=== PATIENT | male | born 1945 | race Caucasian/White ===

== ENCOUNTER → 2017-08-28 | Outpatient (CLI) | payer OTHER, MEDICARE ==
[~2017-08-28] MED LIST: GADOBUTROL 10 ML VIAL IVP ONE
== END ==
LOC: FIMAGING 10:10
PROVIDERS: ATTEND Surgery
DX: M79.89 Other specified soft tissue disorders (principal); C83.10 Mantle cell lymphoma, unspecified site; L03.113 Cellulitis of right upper limb; M60.9 Myositis, unspecified; M72.9 Fibroblastic disorder, unspecified
CPT/HCPCS: 73220; A9585